=== PATIENT | female | born 1955 | race Caucasian/White ===

== ENCOUNTER 2021-07-25 09:45 | Emergency (ER) | payer MEDICARE, OTHER ==
[~2021-07-25] VITALS: Ht 172.7 cm; Wt 81.7 kg
[2021-07-25 10:39] LABS: BASOPHILS ABSOLUTE AUTO 0.04 K/mm3 (0.00-0.23); BASOPHILS PERCENT AUTO 1 % (0-2); EOSINOPHILS ABSOLUTE AUTO 0.06 K/mm3 (0.00-0.68); EOSINOPHILS PERCENT AUTO 1 % (0-6); IMMATURE GRAN PERCENT AUTO 0 % (0-1); LYMPHOCYTES ABSOLUTE AUTO 1.61 K/mm3 (0.84-5.20); LYMPHOCYTES PERCENT AUTO 29 % (21-46); MONOCYTES PERCENT AUTO 11 % (4-13); Mean Corpuscular HGB 30.9 pg (26.0-34.0); Mean Corpuscular HGB Conc 34.9 g/dL (31.5-36.5); Mean Corpuscular Volume 89 fL (80-100); Mean Platelet Volume 9.4 fL (9.1-12.4); NEUTROPHILS ABSOLUTE AUTO 3.22 K/mm3 (1.96-9.15); NEUTROPHILS PERCENT AUTO 58 % (41-73); Platelet Count 296 K/mm3 (150-400); RDW Coefficient Variation 12.2 % (11.7-14.2); RDW Standard Deviation 39.7 fL (35.1-46.3); Red Blood Cell Count 4.86 M/mm3 (3.80-5.20); White Blood Cell Count 5.53 K/mm3 (4.00-11.30)
[2021-07-25 11:02] LABS: Alanine Aminotransfer (ALT/SGP 46 U/L (12-78); Albumin, Blood 3.4 g/dL (3.4-5.0); Alk Phos 120 U/L (50-136); Anion Gap 7 mmol/L (6-16); Aspartate Aminotrans (AST/SGOT 28 U/L (12-37); Bilirubin, Total 0.4 mg/dL (0.1-1.0); Blood Urea Nitrogen 23 mg/dL (8-24); Bun/Creatinine Ratio 37.5 (12.0-20.0); CO2, Blood 28 mmol/L (21-32); Calcium, Blood 9.5 mg/dL (8.5-10.1); Chloride, Blood 105 mmol/L (98-108); Creatinine, Blood 0.61 mg/dL (0.40-1.00); Globulin, Blood 3.4 g/dL (2.2-4.0); Glomerular Filtration Rate >60 (60-); Glucose, Blood 86 mg/dL (70-99); Potassium, Blood 4.2 mmol/L (3.5-5.5); Sodium, Blood 140 mmol/L (136-145); Total Protein, Blood 6.8 g/dL (6.4-8.2)
[2021-07-25 13:01] LABS: Source, Urine Catheter
[2021-07-25 13:07] LABS: Appearance, Urine Clear (Clear); Bilirubin, Urine Neg (Neg); Blood, Urine Neg (Neg); Color, Urine Yellow (P-Yellow); Glucose Qualitative, Urine Neg (Neg); Ketones, Urine Neg (Neg); Leukocyte Esterase, Urine Neg (Neg); Nitrite, Urine Neg (Neg); Protein, Urine Neg (Neg); Urobilinogen, Urine NORM (Normal)
== END 2021-07-25 13:30 | disposition home or self-care (01) ==
LOC: ER 09:45
PROVIDERS: Physician Assistant
DX: R25.1 Tremor, unspecified (principal)
CPT/HCPCS: 36415; 80053; 81003; 85025; 93005; 93010; 99285-25

== ENCOUNTER → 2021-10-29 | Outpatient (CLI) | payer MEDICARE, OTHER ==
[~2021-10-29] MED LIST: AMLODIPINE BESYL5 MG PO; BACLOFEN10 M4 PO; CELEXA10 MG PO; CEPHALEXIN125 MG/5 M PO; FUROSEMIDE20 MG PO; HYDROCODONE-AC1 EA18 PO; LOVASTATIN40 MG PO; Lisinopril2.5 MG PO; NAPROXEN500 MG PO; OMEP20ER PO; Oxybutynin Chlor5 M1 PO
[2021-10-29 16:55] LABS: Source, Urine Voided
[2021-10-29 17:56] LABS: Appearance, Urine Hazy (Clear); Bilirubin, Urine Neg (Neg); Blood, Urine 2+ (Neg); Color, Urine Yellow (P-Yellow); Glucose Qualitative, Urine Neg (Neg); Ketones, Urine Neg (Neg); Leukocyte Esterase, Urine 1+ (Neg); Nitrite, Urine Neg (Neg); Protein, Urine Neg (Neg); Specific Gravity, Urine 1.015 (1.003-1.022); Urobilinogen, Urine NORM (Normal)
[2021-10-29 18:11] LABS: Bacteria Many /hpf; Squamous Epithelial Cells Mod /hpf (Few)
== END ==
LOC: LAB SHORT 16:52 → LAB 16:52
PROVIDERS: Internal Medicine
DX: N39.0 Urinary tract infection, site not specified (principal)
CPT/HCPCS: 81001; 87086

== ENCOUNTER 2022-02-03 08:17 | Emergency (ER) | payer MEDICARE, OTHER ==
[~2022-02-03] VITALS: Ht 177.8 cm; Wt 81.7 kg
[2022-02-03] MEDS ORDERED: AMLODIPINE BESYL5 MG PO (08:38)
[2022-02-03] MEDS ORDERED: Oxybutynin Chlor5 M1 PO (08:38)
[2022-02-03] MEDS ORDERED: CELEXA10 MG PO (08:38)
[2022-02-03] MEDS ORDERED: OMEP20ER PO (08:39)
[2022-02-03] MEDS ORDERED: BACLOFEN10 M4 PO (08:39)
[2022-02-03] MEDS ORDERED: FUROSEMIDE20 MG PO (08:39)
[2022-02-03] MEDS ORDERED: HYDROCODONE-AC1 EA18 PO (08:39)
[2022-02-03] MEDS ORDERED: NAPROXEN500 MG PO (08:39)
[2022-02-03] MEDS ORDERED: LOVASTATIN40 MG PO (08:39)
[2022-02-03] MEDS ORDERED: CEPHALEXIN125 MG/5 M PO (08:40)
[2022-02-03] MEDS ORDERED: Lisinopril2.5 MG PO (08:40)
[2022-02-03 08:43] LABS: BASOPHILS ABSOLUTE AUTO 0.04 K/mm3 (0.00-0.23); BASOPHILS PERCENT AUTO 1 % (0-2); EOSINOPHILS ABSOLUTE AUTO 0.16 K/mm3 (0.00-0.68); EOSINOPHILS PERCENT AUTO 3 % (0-6); Hematocrit 38.8 % (33.0-51.0); Hemoglobin 13.3 g/dL (11.5-16.0); IMMATURE GRAN ABSOLUTE AUTO 0.02 K/mm3 (0.00-0.10); IMMATURE GRAN PERCENT AUTO 0 % (0-1); LYMPHOCYTES ABSOLUTE AUTO 2.08 K/mm3 (0.84-5.20); LYMPHOCYTES PERCENT AUTO 35 % (21-46); MONOCYTES PERCENT AUTO 14 % (4-13); Mean Corpuscular HGB 29.8 pg (26.0-34.0); Mean Corpuscular HGB Conc 34.3 g/dL (31.5-36.5); Mean Corpuscular Volume 87 fL (80-100); Mean Platelet Volume 9.4 fL (9.1-12.4); NEUTROPHILS PERCENT AUTO 47 % (41-73); Platelet Count 273 K/mm3 (150-400); RDW Coefficient Variation 12.5 % (11.7-14.2); RDW Standard Deviation 39.4 fL (35.1-46.3); Red Blood Cell Count 4.47 M/mm3 (3.80-5.20)
[2022-02-03 09:03] LABS: Albumin, Blood 3.5 g/dL (3.4-5.0); Bilirubin, Total 0.4 mg/dL (0.1-1.0); Bun/Creatinine Ratio 30.1 (12.0-20.0); Calcium, Blood 9.3 mg/dL (8.5-10.1); Creatinine, Blood 0.63 mg/dL (0.40-1.00); Globulin, Blood 3.4 g/dL (2.2-4.0); Potassium, Blood 4.1 mmol/L (3.5-5.5); Total Protein, Blood 6.9 g/dL (6.4-8.2)
== END 2022-02-03 10:39 | disposition home or self-care (01) ==
LOC: ER 08:17
PROVIDERS: Physician Assistant
DX: R20.2 Paresthesia of skin (principal); Z79.899 Other long term (current) drug therapy
CPT/HCPCS: 36415; 80053; 85025; 99284

== ENCOUNTER 2022-09-01 11:25 | Emergency (ER) | payer MEDICARE, OTHER ==
[~2022-09-01] VITALS: Ht 175.3 cm; Wt 83.9 kg
[2022-09-01 12:59] LABS: BASOPHILS ABSOLUTE AUTO 0.05 K/mm3 (0.00-0.23); BASOPHILS PERCENT AUTO 1 % (0-2); EOSINOPHILS ABSOLUTE AUTO 0.24 K/mm3 (0.00-0.68); EOSINOPHILS PERCENT AUTO 4 % (0-6); Hematocrit 44.1 % (33.0-51.0); Hemoglobin 15.4 g/dL (11.5-16.0); IMMATURE GRAN ABSOLUTE AUTO 0.01 K/mm3 (0.00-0.10); IMMATURE GRAN PERCENT AUTO 0 % (0-1); LYMPHOCYTES ABSOLUTE AUTO 2.34 K/mm3 (0.84-5.20); LYMPHOCYTES PERCENT AUTO 36 % (21-46); MONOCYTES ABSOLUTE AUTO 0.74 K/mm3 (0.16-1.47); MONOCYTES PERCENT AUTO 12 % (4-13); Mean Corpuscular HGB 30.2 pg (26.0-34.0); Mean Corpuscular HGB Conc 34.9 g/dL (31.5-36.5); Mean Corpuscular Volume 87 fL (80-100); Mean Platelet Volume 9.4 fL (9.1-12.4); NEUTROPHILS ABSOLUTE AUTO 3.04 K/mm3 (1.96-9.15); NEUTROPHILS PERCENT AUTO 47 % (41-73); Platelet Count 262 K/mm3 (150-400); RDW Coefficient Variation 12.3 % (11.7-14.2); White Blood Cell Count 6.42 K/mm3 (4.00-11.30)
[2022-09-01 13:09] LABS: Albumin, Blood 3.5 g/dL (3.4-5.0); Albumin/Globulin Ratio 0.8 (0.8-1.8); Bilirubin, Total 0.5 mg/dL (0.1-1.0); Calcium, Blood 8.9 mg/dL (8.5-10.1); Creatinine, Blood 0.68 mg/dL (0.40-1.00); Globulin, Blood 4.2 g/dL (2.2-4.0); Total Protein, Blood 7.7 g/dL (6.4-8.2)
[2022-09-01 13:27] LABS: Influenza A, PCR NEGATIVE (NEGATIVE); Influenza B, PCR NEGATIVE (NEGATIVE); Resp Syncytial Virus, PCR NEGATIVE (NEGATIVE); SARS-Cov-2 (COVID-19) PCR, MMC NEGATIVE (NEGATIVE)
== END 2022-09-01 20:50 | disposition home or self-care (01) ==
LOC: ER 11:25
PROVIDERS: Student in an Organized Health Care Education/Training Program
DX: R05.9 Cough, unspecified (principal); R07.89 Other chest pain; Z20.822 Contact with and (suspected) exposure to COVID-19; Z79.899 Other long term (current) drug therapy
CPT/HCPCS: 0241U; 71046; 71260; 80053; 83880; 84484; 85025; 85379; 93005; 93010; 94640; 94664; 99285-25; Q9967

== ENCOUNTER → 2022-10-26 | Outpatient (CLI) | payer MEDICARE, OTHER ==
[2022-10-26 15:31] LABS: Appearance, Urine Clear (Clear); Bilirubin, Urine Neg (Neg); Blood, Urine Neg (Neg); Glucose Qualitative, Urine Neg (Neg); Ketones, Urine Neg (Neg); Leukocyte Esterase, Urine Neg (Neg); Nitrite, Urine Neg (Neg); Protein, Urine Neg (Neg); Specific Gravity, Urine 1.015 (1.003-1.022); Urobilinogen, Urine NORM (Normal)
[2022-10-26 16:08] LABS: Color, Urine Pale Yellow (P-Yellow)
== END | disposition home or self-care (01) ==
LOC: LAB SHORT 07:45 → LAB 07:45
PROVIDERS: Internal Medicine
DX: N39.0 Urinary tract infection, site not specified (principal)
CPT/HCPCS: 81003; 87086

== ENCOUNTER 2022-11-02 09:29 | Day surgery (SDC) | payer MEDICARE, OTHER ==
[~2022-11-02] VITALS: Ht 177.8 cm; Wt 81.6 kg
[2022-11-02] MEDS ORDERED: BACL10 (10:34)
[2022-11-02 12:21] VITALS: BP 146/97
--- NOTE | 2022-11-02 12:34 | NUR ---
11/02/22 1234 PRADIP PAULINO PT CLOTHING IS SOILED WITH URINE. WILL CLEAN HER WITH READY BATH FRESH AND PUT A NEW DEPENDS ON HER WELL DISPOSABLE PANTS FOR HER RIDE HOME.
== END 2022-11-02 13:10 | disposition home or self-care (01) ==
LOC: ORSCSDS 09:29
PROVIDERS: Orthopaedic Surgery
PROC: 01N54ZZ Release Median Nerve, Percutaneous Endoscopic Approach (ICD-10-PCS; principal; 2022-11-02 11:30)
DX: G56.03 Carpal tunnel syndrome, bilateral upper limbs (principal); Z79.899 Other long term (current) drug therapy
CPT/HCPCS: J2250; J7120

== ENCOUNTER → 2022-11-18 | Outpatient (CLI) | payer MEDICARE, OTHER ==
[~2022-11-18] MED LIST changes: +BACL10
[2022-11-18 16:36] LABS: Appearance, Urine Clear (Clear); Bilirubin, Urine Neg (Neg); Blood, Urine Neg (Neg); Color, Urine Yellow (P-Yellow); Glucose Qualitative, Urine Neg (Neg); Ketones, Urine Neg (Neg); Leukocyte Esterase, Urine Neg (Neg); Nitrite, Urine Neg (Neg); Protein, Urine Neg (Neg); Urobilinogen, Urine NORM (Normal)
== END ==
LOC: LAB SHORT 16:16
PROVIDERS: Internal Medicine
DX: N39.0 Urinary tract infection, site not specified (principal)
CPT/HCPCS: 81003

== ENCOUNTER → 2023-02-15 | Outpatient (CLI) | payer MEDICARE, OTHER ==
[2023-02-16 01:17] LABS: Adenovirus F 40/41 Not Detected (NOT DETECT); Astrovirus Not Detected (NOT DETECT); Campylobacter Sp Not Detected (NOT DETECT); Cryptosporidium Not Detected (NOT DETECT); Cyclospora Cayetanensis Not Detected (NOT DETECT); E. Coli O157 Not Detected (NOT DETECT); Entamoeba Histolytica Not Detected (NOT DETECT); Enteroaggregative E. coli-EAEC Not Detected (NOT DETECT); Enteropathogenic E. coli-EPEC Not Detected (NOT DETECT); Enterotoxigenic E. coli-ETEC Not Detected (NOT DETECT); Giardia Lamblia Detected (NOT DETECT); Norovirus GI/GII Not Detected (NOT DETECT); Plesiomonas Shigelloides Not Detected (NOT DETECT); Rotavirus A Not Detected (NOT DETECT); Salmonella Sp Not Detected (NOT DETECT); Sapovirus Not Detected (NOT DETECT); Shiga Toxin-prod E. coli-STEC Not Detected (NOT DETECT); Shigella/Enteroin E. coli-EIEC Not Detected (NOT DETECT); Vibrio Cholerae Not Detected (NOT DETECT); Vibrio Sp Not Detected (NOT DETECT); Yersinia Enterocolitica Not Detected (NOT DETECT)
== END ==
LOC: LAB 18:15 → LAB SHORT 18:15
PROVIDERS: Internal Medicine
DX: A06.1 Chronic intestinal amebiasis (principal)
CPT/HCPCS: 87507

== ENCOUNTER 2023-03-28 22:26 | Emergency (ER) | payer MEDICARE, OTHER ==
[~2023-03-28] VITALS: Ht 177.8 cm; Wt 127.0 kg
[2023-03-28 22:53] VITALS: BP 152/96
[2023-03-28 23:03] LABS: BASOPHILS ABSOLUTE AUTO 0.07 K/mm3 (0.00-0.23); BASOPHILS PERCENT AUTO 1 % (0-2); EOSINOPHILS ABSOLUTE AUTO 0.15 K/mm3 (0.00-0.68); EOSINOPHILS PERCENT AUTO 2 % (0-6); Hematocrit 41.6 % (33.0-51.0); Hemoglobin 14.4 g/dL (11.5-16.0); IMMATURE GRAN ABSOLUTE AUTO 0.02 K/mm3 (0.00-0.10); IMMATURE GRAN PERCENT AUTO 0 % (0-1); LYMPHOCYTES ABSOLUTE AUTO 2.91 K/mm3 (0.84-5.20); LYMPHOCYTES PERCENT AUTO 44 % (21-46); MONOCYTES ABSOLUTE AUTO 0.96 K/mm3 (0.16-1.47); MONOCYTES PERCENT AUTO 14 % (4-13); Mean Corpuscular HGB 30.6 pg (26.0-34.0); Mean Corpuscular HGB Conc 34.6 g/dL (31.5-36.5); Mean Corpuscular Volume 88 fL (80-100); Mean Platelet Volume 9.4 fL (9.1-12.4); NEUTROPHILS ABSOLUTE AUTO 2.56 K/mm3 (1.96-9.15); NEUTROPHILS PERCENT AUTO 39 % (41-73); Platelet Count 240 K/mm3 (150-400); RDW Coefficient Variation 12.6 % (11.7-14.2); RDW Standard Deviation 41.1 fL (35.1-46.3); Red Blood Cell Count 4.71 M/mm3 (3.80-5.20); White Blood Cell Count 6.67 K/mm3 (4.00-11.30)
[2023-03-28 23:21] LABS: Albumin, Blood 3.6 g/dL (3.4-5.0); Albumin/Globulin Ratio 1.1 (0.8-1.8); Bilirubin, Total 0.2 mg/dL (0.1-1.0); Bun/Creatinine Ratio 30.2 (12.0-20.0); Calcium, Blood 8.9 mg/dL (8.5-10.1); Creatinine, Blood 0.8 mg/dL (0.40-1.00); Globulin, Blood 3.3 g/dL (2.2-4.0); Potassium, Blood 4.1 mmol/L (3.5-5.5); Total Protein, Blood 6.9 g/dL (6.4-8.2)
== END 2023-03-29 00:21 | disposition home or self-care (01) ==
LOC: ER 22:26
PROVIDERS: Student in an Organized Health Care Education/Training Program
DX: R55 Syncope and collapse (principal); Z79.899 Other long term (current) drug therapy; Z79.891 Long term (current) use of opiate analgesic
CPT/HCPCS: 80053; 85025; 93005; 93010; 99284-25

== ENCOUNTER 2023-05-19 10:30 | Emergency (ER) | payer MEDICARE, OTHER ==
[~2023-05-19] VITALS: Ht 175.3 cm; Wt 90.7 kg
[2023-05-19 11:02] LABS: BASOPHILS ABSOLUTE AUTO 0.05 K/mm3 (0.00-0.23); BASOPHILS PERCENT AUTO 1 % (0-2); EOSINOPHILS ABSOLUTE AUTO 0.14 K/mm3 (0.00-0.68); EOSINOPHILS PERCENT AUTO 2 % (0-6); Hematocrit 41.2 % (33.0-51.0); Hemoglobin 13.8 g/dL (11.5-16.0); IMMATURE GRAN ABSOLUTE AUTO 0.01 K/mm3 (0.00-0.10); IMMATURE GRAN PERCENT AUTO 0 % (0-1); LYMPHOCYTES ABSOLUTE AUTO 2.14 K/mm3 (0.84-5.20); LYMPHOCYTES PERCENT AUTO 34 % (21-46); MONOCYTES ABSOLUTE AUTO 0.52 K/mm3 (0.16-1.47); MONOCYTES PERCENT AUTO 8 % (4-13); Mean Corpuscular HGB 30.4 pg (26.0-34.0); Mean Corpuscular HGB Conc 33.5 g/dL (31.5-36.5); Mean Corpuscular Volume 91 fL (80-100); Mean Platelet Volume 9.4 fL (9.1-12.4); NEUTROPHILS ABSOLUTE AUTO 3.49 K/mm3 (1.96-9.15); NEUTROPHILS PERCENT AUTO 55 % (41-73); Platelet Count 246 K/mm3 (150-400); RDW Coefficient Variation 12.6 % (11.7-14.2); Red Blood Cell Count 4.54 M/mm3 (3.80-5.20); White Blood Cell Count 6.35 K/mm3 (4.00-11.30)
[2023-05-19 11:17] LABS: Albumin, Blood 3.4 g/dL (3.4-5.0); Bilirubin, Total 0.4 mg/dL (0.1-1.0); Bun/Creatinine Ratio 27.3 (12.0-20.0); Calcium, Blood 8.6 mg/dL (8.5-10.1); Creatinine, Blood 0.84 mg/dL (0.40-1.00); Globulin, Blood 3.4 g/dL (2.2-4.0); Total Protein, Blood 6.8 g/dL (6.4-8.2)
[2023-05-19 13:30] VITALS: BP 153/102
== END 2023-05-19 14:36 | disposition home or self-care (01) ==
LOC: ER 10:30
PROVIDERS: Student in an Organized Health Care Education/Training Program
DX: R55 Syncope and collapse (principal); R42 Dizziness and giddiness
CPT/HCPCS: 80053; 83735; 83880; 84484; 85025; 93005; 93010; 99284-25

== ENCOUNTER 2023-07-06 20:45 | Emergency (ER) | payer MEDICARE, OTHER ==
[~2023-07-06] VITALS: Ht 172.7 cm; Wt 90.7 kg
[2023-07-06 21:00] LABS: BASOPHILS ABSOLUTE AUTO 0.05 K/mm3 (0.00-0.23); BASOPHILS PERCENT AUTO 1 % (0-2); EOSINOPHILS ABSOLUTE AUTO 0.17 K/mm3 (0.00-0.68); EOSINOPHILS PERCENT AUTO 3 % (0-6); Hemoglobin 15.3 g/dL (11.5-16.0); IMMATURE GRAN ABSOLUTE AUTO 0.01 K/mm3 (0.00-0.10); IMMATURE GRAN PERCENT AUTO 0 % (0-1); LYMPHOCYTES ABSOLUTE AUTO 2.71 K/mm3 (0.84-5.20); LYMPHOCYTES PERCENT AUTO 44 % (21-46); MONOCYTES ABSOLUTE AUTO 0.74 K/mm3 (0.16-1.47); MONOCYTES PERCENT AUTO 12 % (4-13); Mean Corpuscular HGB 31.3 pg (26.0-34.0); Mean Corpuscular HGB Conc 34.8 g/dL (31.5-36.5); Mean Corpuscular Volume 90 fL (80-100); Mean Platelet Volume 9.3 fL (9.1-12.4); NEUTROPHILS ABSOLUTE AUTO 2.51 K/mm3 (1.96-9.15); NEUTROPHILS PERCENT AUTO 41 % (41-73); Platelet Count 250 K/mm3 (150-400); RDW Coefficient Variation 12.5 % (11.7-14.2); RDW Standard Deviation 40.8 fL (35.1-46.3); Red Blood Cell Count 4.89 M/mm3 (3.80-5.20); White Blood Cell Count 6.19 K/mm3 (4.00-11.30)
[2023-07-06 21:15] LABS: Albumin, Blood 3.7 g/dL (3.4-5.0); Bilirubin, Total 0.2 mg/dL (0.1-1.0); Bun/Creatinine Ratio 36.2 (12.0-20.0); Calcium, Blood 8.7 mg/dL (8.5-10.1); Creatinine, Blood 0.75 mg/dL (0.40-1.00); Globulin, Blood 3.8 g/dL (2.2-4.0); Potassium, Blood 4.5 mmol/L (3.5-5.5); Total Protein, Blood 7.5 g/dL (6.4-8.2)
[2023-07-06 23:29] LABS: Source, Urine Clean Catch
[2023-07-06 23:48] LABS: Bilirubin, Urine Neg (Neg); Blood, Urine Neg (Neg); Glucose Qualitative, Urine Neg (Neg); Ketones, Urine Neg (Neg); Leukocyte Esterase, Urine 1+ (Neg); Nitrite, Urine Pos (Neg); Protein, Urine 1+ (Neg); Urobilinogen, Urine 2+ (Normal)
[2023-07-06 23:53] LABS: Appearance, Urine Hazy (Clear); Color, Urine Yellow (P-Yellow)
[2023-07-06 23:54] LABS: Bacteria Many /hpf; Red Blood Cells, Urine 0-2 /hpf (0-2); Squamous Epithelial Cells Few /hpf (Few); White Blood Cells, Urine 0-2 /hpf (0-5)
[2023-07-07] MEDS ORDERED: CEPH500 PO (02:29)
[2023-07-07 03:00] VITALS: BP 136/92
== END 2023-07-07 03:27 | disposition home or self-care (01) ==
LOC: ER 20:45
PROVIDERS: Emergency Medicine; Student in an Organized Health Care Education/Training Program
DX: N39.0 Urinary tract infection, site not specified (principal); Z79.899 Other long term (current) drug therapy
CPT/HCPCS: 71046; 74177; 80053; 81001; 84484; 85025; 87077; 87086; 87186; 93005; 93010; 94644; 94664; 99285-25; A9270; Q9967

== ENCOUNTER 2023-08-03 04:55 | Inpatient (IN) | payer MEDICARE, OTHER ==
[~2023-08-03] VITALS: Ht 170.2 cm; Wt 105.4 kg
[~2023-08-03 04:55] MED LIST changes: -BACL10; +BACL10 PO; +CEPH500 PO; -HYDROCODONE-AC1 EA18 PO; +Norco 5-325 Ta1 EACH PO
[2023-08-03 05:17] LABS: Base Excess Venous 3.7 mmol/L; Bicarbonate Venous 26.4 mmol/L (24.0-30.0); PCO2 Venous 49.2 mmHg (38-42); pH Blood Venous 7.38 (7.34-7.37)
[2023-08-03 05:26] LABS: BASOPHILS ABSOLUTE AUTO 0.04 K/mm3 (0.00-0.23); BASOPHILS PERCENT AUTO 1 % (0-2); EOSINOPHILS ABSOLUTE AUTO 0.06 K/mm3 (0.00-0.68); EOSINOPHILS PERCENT AUTO 1 % (0-6); Hematocrit 43.1 % (33.0-51.0); IMMATURE GRAN PERCENT AUTO 0 % (0-1); LYMPHOCYTES PERCENT AUTO 33 % (21-46); MONOCYTES ABSOLUTE AUTO 0.98 K/mm3 (0.16-1.47); MONOCYTES PERCENT AUTO 20 % (4-13); Mean Corpuscular HGB 30.7 pg (26.0-34.0); Mean Corpuscular HGB Conc 34.8 g/dL (31.5-36.5); Mean Corpuscular Volume 88 fL (80-100); NEUTROPHILS ABSOLUTE AUTO 2.19 K/mm3 (1.96-9.15); NEUTROPHILS PERCENT AUTO 45 % (41-73); Platelet Count 190 K/mm3 (150-400); RDW Coefficient Variation 12.7 % (11.7-14.2); Red Blood Cell Count 4.89 M/mm3 (3.80-5.20); White Blood Cell Count 4.87 K/mm3 (4.00-11.30)
[2023-08-03 05:41] LABS: Albumin, Blood 3.6 g/dL (3.4-5.0); Albumin/Globulin Ratio 0.9 (0.8-1.8); Bilirubin, Total 0.4 mg/dL (0.1-1.0); Bun/Creatinine Ratio 38.9 (12.0-20.0); Calcium, Blood 8.9 mg/dL (8.5-10.1); Creatinine, Blood 0.51 mg/dL (0.40-1.00); Potassium, Blood 3.7 mmol/L (3.5-5.5); Total Protein, Blood 7.6 g/dL (6.4-8.2)
[2023-08-03 06:15] LABS: Influenza A, PCR NEGATIVE (NEGATIVE); Influenza B, PCR NEGATIVE (NEGATIVE); SARS-Cov-2 (COVID-19) PCR, MMC NEGATIVE (NEGATIVE)
[2023-08-03 06:21] LABS: Resp Syncytial Virus, PCR POSITIVE (NEGATIVE)
[2023-08-03] MEDS ORDERED: AMLO10 PO (10:24)
[2023-08-03] MEDS ORDERED: CITALOPRAM HBR10 MG PO (10:25)
[2023-08-03] MEDS ORDERED: FURO20 PO (10:26)
[2023-08-03] MEDS ORDERED: LISI5 PO (10:27)
[2023-08-03] MEDS ORDERED: LOVASTATIN40 MG PO (10:28)
[2023-08-03] MEDS ORDERED: OMEP20ER PO (10:29)
[2023-08-03] MEDS ORDERED: Oxybutynin Chlor5 M1 PO (10:30)
--- NOTE | 2023-08-03 11:25 | NUR ---
Pt arrived to [facility] via gurney from ER, was slid over to bed, a/ox3, profoundly [place], even with hearing aids in place, lungs have exp wheezing t/o, air movement is dim, currently on 5 liters 02 via n/c, resp even and unlabored, no cough noted at this time, hrr, looks to have some edema to her thighs, but could be body habitus, piv to lac, site is clear and patent, btx4, abd flat soft nontender, incont of bowel/bladder at this time, had stool present, this was cleaned and changed, has a small open wound deep in buttocks crack, pictures were taken and dressings applied after cleansing, moves upper ext ok, but is stiff, hips seems to be fixed, and legs contracted, aquilino, oriented to room layout and call light in reach.
[2023-08-03 11:30] VITALS: BP 143/84
[2023-08-03 17:27] VITALS: BP 150/83
[2023-08-03] MEDS ORDERED: DOCU100 PO (17:34)
[2023-08-03] MEDS ORDERED: Milk of Magnesia PO (17:36)
[2023-08-03] MEDS ORDERED: BISA10S PR (17:37)
[2023-08-03] MEDS ORDERED: CLOBETASOL EMOL15 G1 TOP (17:38)
[2023-08-03] MEDS ORDERED: MIRALAX17 GM PO (17:39)
[2023-08-03] MEDS ORDERED: ACET500 PO (17:42)
--- NOTE | 2023-08-03 18:36 | NUR ---
pt has had four bm since admission, her legs want to clamp shut and is very difficult to clean, ointment being placed on her sores on her buttocks as is not practical to have dressings. no further changes this shift. call light in reach.
[2023-08-03 19:39] VITALS: BP 149/88
[2023-08-04 05:19] VITALS: BP 171/103
[2023-08-04 05:19] LABS: BASOPHILS ABSOLUTE AUTO 0.02 K/mm3 (0.00-0.23); BASOPHILS PERCENT AUTO 0 % (0-2); EOSINOPHILS ABSOLUTE AUTO 0.03 K/mm3 (0.00-0.68); EOSINOPHILS PERCENT AUTO 0 % (0-6); Hematocrit 42.1 % (33.0-51.0); Hemoglobin 14.1 g/dL (11.5-16.0); IMMATURE GRAN ABSOLUTE AUTO 0.02 K/mm3 (0.00-0.10); IMMATURE GRAN PERCENT AUTO 0 % (0-1); LYMPHOCYTES ABSOLUTE AUTO 2.67 K/mm3 (0.84-5.20); LYMPHOCYTES PERCENT AUTO 29 % (21-46); MONOCYTES ABSOLUTE AUTO 1.49 K/mm3 (0.16-1.47); MONOCYTES PERCENT AUTO 16 % (4-13); Mean Corpuscular HGB 30.1 pg (26.0-34.0); Mean Corpuscular HGB Conc 33.5 g/dL (31.5-36.5); Mean Corpuscular Volume 90 fL (80-100); Mean Platelet Volume 9.5 fL (9.1-12.4); NEUTROPHILS ABSOLUTE AUTO 4.94 K/mm3 (1.96-9.15); NEUTROPHILS PERCENT AUTO 54 % (41-73); Platelet Count 206 K/mm3 (150-400); RDW Coefficient Variation 12.8 % (11.7-14.2); RDW Standard Deviation 42.3 fL (35.1-46.3); Red Blood Cell Count 4.68 M/mm3 (3.80-5.20); White Blood Cell Count 9.17 K/mm3 (4.00-11.30)
[2023-08-04 05:36] LABS: Albumin, Blood 3.2 g/dL (3.4-5.0); Albumin/Globulin Ratio 0.8 (0.8-1.8); Bilirubin, Total 0.3 mg/dL (0.1-1.0); Bun/Creatinine Ratio 31.2 (12.0-20.0); Calcium, Blood 8.7 mg/dL (8.5-10.1); Creatinine, Blood 0.51 mg/dL (0.40-1.00); Potassium, Blood 4.1 mmol/L (3.5-5.5); Total Protein, Blood 7.2 g/dL (6.4-8.2)
--- NOTE | 2023-08-04 05:46 | NUR ---
SHIFT SUMMERY, PT SEEMING VERY ANXIOUS AT TIMES. PT C/O SALCEDO LAST NOC AND WAS MEDICATED WITH TYLENOL. THIS AM PT HAVING PANIC ATTACK STATED SHE COULS NOT BREATH BUT WAS YELLING. TURNED UP O2 AND PLCED NC TO MOUTH PT NOT BREATHING THROUGH HER NOSE. PULLED PT UP IN BED, HOB UP CALLED RT FOR TX. PT NOW BACK TO SLEEP IN BED. CALL LIGHT IN REACH.
[2023-08-04 07:47] VITALS: BP 149/103
--- NOTE | 2023-08-04 16:02 | NUR ---
PT AOX3 WITH SOME CONFUSION. PT HAS BEEN IN BED AND NEEDS REPOSTIONED HER HIPS ARE STIFF AND SHE CAN'T ROLL WELL ON HER OWN. PT IS INCONTENT OF BOWEL AND BLADDER WITH PERWICK IN PLACE. PT WILL CALL AND MAKE NEEDS KNOWN. PT REPORTED WHILE EATING LUNCH THAT SHE FEELS LIKE FOOD IS GETTING STUCK IN HER THROAT DOWN LOW. THIS CYBER CRIME INVESTIGATOR CHECKED PT'S THROAT AND DID NOT SEE ANY IRRITATION AT BACK OF THROAT. DR CHAN WAS NOTIFIED AND HE ORDERED PT TO BE NPO UNTIL ST CAN EVALUATE. PT CONTINUES TO HAVE 3 L GOING AND IS SATING LOW 90s. CALL LIGHT IS WITHIN REACH AND BEDALARM IN PLACE.
[2023-08-04 16:30] VITALS: BP 158/105
[2023-08-04 19:55] VITALS: BP 155/117
[2023-08-05 01:26] VITALS: BP 176/92
--- NOTE | 2023-08-05 01:32 | NUR ---
IRVIN STAUFFER, PT AT START OF SHIFT WAS VERY ANXIOUS, YELLING OUT. PT SAYING SHE COULD NOT BREATH. TALKED TO PT ABOUT BREATHING THROUGH NOSE AND OUT OF MOUTH. PT ALSO UPSET ABOUT BEING NPO. PT THINKING IT WAS A PUNISHMENT FOR COMPLANING. TRYED TO EXSPLANE TO PT THERE WAS SOME CONCERN ABOUT HER SWALLOWING AND SHE WOULD BE TESTED BY STEPHANIE TO MAKE SURE SHE WAS SAFELY ABLE TO SWALLOW FOOD DRINKS AND MEDS. PT VU, BUT THEN AGAIN WAS SAYING SHE WAS THINKING SHE WAS BEING PUNISHED FOR C/O. PT GIVEN RT TX AND HER HS MEDS . PT CALMING DOWN. PT SLEPT FO A WHILE VITALS RETAKEN LATER . BP WAS UP AT BEGINING OF SHIFT DOWN MORE AT THIS TIME. PT SEEMS TO BE RESTING WELL CALL LIGHT IN REACH.
[2023-08-05 05:12] VITALS: BP 178/99
[2023-08-05 05:43] LABS: BASOPHILS ABSOLUTE AUTO 0.01 K/mm3 (0.00-0.23); BASOPHILS PERCENT AUTO 0 % (0-2); EOSINOPHILS PERCENT AUTO 0 % (0-6); Hematocrit 43.4 % (33.0-51.0); Hemoglobin 15.1 g/dL (11.5-16.0); IMMATURE GRAN ABSOLUTE AUTO 0.02 K/mm3 (0.00-0.10); IMMATURE GRAN PERCENT AUTO 0 % (0-1); LYMPHOCYTES PERCENT AUTO 16 % (21-46); MONOCYTES ABSOLUTE AUTO 1.05 K/mm3 (0.16-1.47); MONOCYTES PERCENT AUTO 10 % (4-13); Mean Corpuscular HGB 30.8 pg (26.0-34.0); Mean Corpuscular HGB Conc 34.8 g/dL (31.5-36.5); Mean Corpuscular Volume 89 fL (80-100); Mean Platelet Volume 9.2 fL (9.1-12.4); NEUTROPHILS ABSOLUTE AUTO 8.09 K/mm3 (1.96-9.15); NEUTROPHILS PERCENT AUTO 74 % (41-73); Platelet Count 221 K/mm3 (150-400); RDW Coefficient Variation 12.6 % (11.7-14.2); RDW Standard Deviation 40.9 fL (35.1-46.3); White Blood Cell Count 10.87 K/mm3 (4.00-11.30)
[2023-08-05 06:31] LABS: Albumin, Blood 3.2 g/dL (3.4-5.0); Albumin/Globulin Ratio 0.8 (0.8-1.8); Bilirubin, Total 0.5 mg/dL (0.1-1.0); Bun/Creatinine Ratio 29.6 (12.0-20.0); Calcium, Blood 9.1 mg/dL (8.5-10.1); Creatinine, Blood 0.58 mg/dL (0.40-1.00); Globulin, Blood 4.2 g/dL (2.2-4.0); Magnesium, Blood 2.3 mg/dL (1.6-2.4); Phosphorus, Blood 3.4 mg/dL (2.5-4.9); Potassium, Blood 4.1 mmol/L (3.5-5.5); Total Protein, Blood 7.4 g/dL (6.4-8.2)
[2023-08-05 07:34] VITALS: BP 154/108
[2023-08-05 16:02] VITALS: BP 134/123
--- NOTE | 2023-08-05 18:45 | NUR ---
SHIFT SUMMARY: PATIENT HAD SUDDEN EPISODE OF EMESIS DURING DINNER THIS EVENING. SLIGHT POSSIBILITY OF ASPIRATION BUT NO CHANGE IN RR, RESP EFFORT, OR OXYGEN NEEDS. ANOTHER RN RECEIVED ORDER FOR AND ADMINISTERED ZOFRAN WHILE COMPLETE BATH AND BED CHANGE WAS COMPLETED. ON O2 @ 2 L/MIN NC, CONT OXIMETRY SHOWS > 92%. DENIED PAIN. PUREWICK DRAINING YELLOW URINE. GRAVEL ROOFER SAW PT THIS MORNING, ADVANCED DIET TO MINCED, NECTAR THICK LIQUIDS, WHICH SHE HAD BEEN TOLERATING WELL ALL DAY. ON DROPLET PRECAUTIONS FOR RSV. PLAN IS D/C BACK TO [facility] IN THE NEXT DAY OR TWO.
[2023-08-05 20:02] VITALS: BP 137/94
[2023-08-06 05:59] VITALS: BP 151/97
[2023-08-06 06:38] LABS: Bun/Creatinine Ratio 30.5 (12.0-20.0); Creatinine, Blood 0.62 mg/dL (0.40-1.00); Potassium, Blood 4.3 mmol/L (3.5-5.5)
--- NOTE | 2023-08-06 07:52 | NUR ---
SHIFT SUMMERY, PT RESTING IN BED, BUT DURRING TRANSFER OF NEW PT FROM [facility] TO BED. PT STARTED YELLING SAYING SHE WAS HUNGERY. WENT TO CHECK ON PT SOON POSIBLE AND PT SITTING ON EDGE OF BED READY TO FALL OUT STILL YELLING ABOUT SIMEON. TOLD PT TO NOT DO THAT SHE WOULD FALL. HELPED PT BACK TO BED. GOT PT SOME SNACKS. LATTER MEDICATED PT WITH HS MEDS AND PT HAS SEEMED TO SLEEP WELL DURING THE NIGHT. CALL LIGHT IN REACH.
[2023-08-06 08:44] VITALS: BP 141/92
[2023-08-06 15:22] VITALS: BP 137/94
--- NOTE | 2023-08-06 17:47 | NUR ---
SHIFT SUMMARY PT A&O TO SELF AND PERSON, REQUIRES REORIENTATION TO CURRENT SITUATION, PLACE, DATE/TIME, BUT EASILY ORIENTABLE, VSS, TOLERATING PO, VOIDING AND HAS PUREWICK IN PLACE, BED/CHAIR BOUND AT BASELINE, AND DENIED PAIN. CALL LIGHT WITHIN REACH AND PT ABLE TO MAKE NEEDS KNOWN.
[2023-08-06 20:04] VITALS: BP 142/89
[2023-08-07 04:45] VITALS: BP 140/79
--- NOTE | 2023-08-07 06:06 | NUR ---
0400 AGREE WITH SABINO MARTINEZ RN'S ASSESSMENT. WILL TAKE OVER FULL CARE OF PT AT THIS TIME. PT IS CURRENTLY LYING IN BED, EYES CLOSED, APPEARS TO BE RESTING. BREATHING IS EVEN, UNLABORED. NO APPARENT SIGNS OF DISTRESS. CALL LIGHT IS IN REACH.
--- NOTE | 2023-08-07 06:08 | NUR ---
0575 PT'S IV WAS ACCIDENTALLY PULLED OUT. STARTED NEW IV IN L HAND. PT TOLERATED WELL. ASSISTED OCCUPATIONAL HEALTH PHYSICIAN IN TURNING AND CHANGING THE PT. NO OTHER APPARENT SIGNS OF DISTRESS. PT DENIES NEED FOR ANYTHING ELSE AT THIS TIME. CALL LIGHT IS IN REACH. NO OTHER CHANGES THIS SHIFT.
--- NOTE | 2023-08-07 06:09 | NUR ---
PT IS AAO X 2-3, SOMEWHAT CHILDLIKE. PUREWICK IN PLACE.
[2023-08-07 08:24] VITALS: BP 175/128
--- NOTE | 2023-08-07 08:41 | NUR ---
PT'S BP 175/128 AT 0824 AND RECHECKED MANUALLY 160/118. NOTIFIED PROVIDER WHO STATED TO GIVE MORNING MEDS AMLODIPINE AND ZESTRIL ORDERD AND RECHECK IN AN HOUR.
[2023-08-07 09:37] VITALS: BP 138/87
--- NOTE | 2023-08-07 17:40 | NUR ---
SHIFT SUMMARY A&OX2-3 WITH CHILDLIKE THOUGHT PROCESSES. COOPERATIVE WITH CARE. DENIES ANY CP/PRESSURE, HEADACHE, OR DIZZINESS. SOB WITH SOME EXERTION IN BED AND WHEN LAYING FLAT. NO COMPLAINTS OF PAIN. CURRENTLY ON 2L O2 VIA NC WITH O2 SATS >94%. NO COUGH NOTED. SPEECH THERAPY EVALUATED PATIENT - THIN LIQUIDS, SOFT/BITE SIZED, AND MEDS WHOLE WITH APPLESAUCE. BLANCHABLE REDNESS WITH SOME CRACKED SKIN ON RIGHT INNER BUTTOCK. COVERED WITH BARRIER CREAM. PATIENT USING A PUREWICK. 1+ PITTING EDEMA TO BLE. LEGS ARE VERY TIGHT AND DO NOT ADDUCT EASILY. NO ACUTE CHANGES THIS SHIFT. CURRENTLY RESTING IN BED WATCHING TV. BED IN LOWEST POSITION. CALL LIGHT WITHIN REACH.
[2023-08-07 19:44] VITALS: BP 148/101
[2023-08-07 23:11] VITALS: BP 138/96
--- NOTE | 2023-08-08 03:37 | NUR ---
PT A&OX2-3 CHILDLIKE W HX CP, PT MAKES NEEDS KNOWN USES CALL JACKSON APPROPERIATELY, PT ON ISOLATION PRECAUTIONS USING O2 3LNC RSV/BRONCHITIS IV L HAND PATENT. PT DENIES CONSTIPATION INCONT WITH PURWIC IN PLACE. PT IS ON BEDREST TURN Q2HR PT SELF POSISONS FOR COMFORT.CALL JACSKON WITH IN REACH BED LOWERED WILL CONTINUE TO MONITOR. PT REPORTS HEADACHE PRN GIVEN, BLOOD PRESSURE REASSESSED AND PROVIDED PO FLUIDS.
[2023-08-08 05:14] VITALS: BP 163/107
[2023-08-08 05:37] LABS: BASOPHILS ABSOLUTE AUTO 0.01 K/mm3 (0.00-0.23); BASOPHILS PERCENT AUTO 0 % (0-2); EOSINOPHILS ABSOLUTE AUTO 0.01 K/mm3 (0.00-0.68); EOSINOPHILS PERCENT AUTO 0 % (0-6); Hematocrit 45.7 % (33.0-51.0); Hemoglobin 15.6 g/dL (11.5-16.0); IMMATURE GRAN ABSOLUTE AUTO 0.04 K/mm3 (0.00-0.10); IMMATURE GRAN PERCENT AUTO 0 % (0-1); LYMPHOCYTES ABSOLUTE AUTO 2.23 K/mm3 (0.84-5.20); LYMPHOCYTES PERCENT AUTO 21 % (21-46); MONOCYTES ABSOLUTE AUTO 0.97 K/mm3 (0.16-1.47); MONOCYTES PERCENT AUTO 9 % (4-13); Mean Corpuscular HGB 30.2 pg (26.0-34.0); Mean Corpuscular HGB Conc 34.1 g/dL (31.5-36.5); Mean Corpuscular Volume 88 fL (80-100); Mean Platelet Volume 9.1 fL (9.1-12.4); NEUTROPHILS ABSOLUTE AUTO 7.54 K/mm3 (1.96-9.15); NEUTROPHILS PERCENT AUTO 70 % (41-73); Platelet Count 284 K/mm3 (150-400); Red Blood Cell Count 5.17 M/mm3 (3.80-5.20)
[2023-08-08 05:55] LABS: Bun/Creatinine Ratio 33.4 (12.0-20.0); Calcium, Blood 9.1 mg/dL (8.5-10.1); Creatinine, Blood 0.6 mg/dL (0.40-1.00); Potassium, Blood 4.4 mmol/L (3.5-5.5)
--- NOTE | 2023-08-08 06:19 | NUR ---
PT HAS A SMALL SORE TO HER L.UPPER EAR AND BELIEVES IT WAS CAUSED BY "A [employer] IN [place]" AND "THE ISSUES SHE'S HAVING NOW ARE FROM [place] GROWING INSIDE HER RESULT". SHE THINKS SURGERY IS REQUIRED BUT THIS RN ENCOURAGED HER TO WEAR CPAP MASK INSTEAD TO HELP ALLEVIATE SOB/DYSPNEA POST EXERTION.
--- NOTE | 2023-08-08 06:51 | NUR ---
ASSUMED CARE OF PT AT 0400. NO CHANGES NOTED. AM MEDS AND PRN TYLENOL RECIEVED PER EMAR. VINCE AND REPORT TO DAY JENNIFER.
[2023-08-08] MEDS ORDERED: GUAI600T33 PO (14:45)
[2023-08-08] MEDS ORDERED: Flonase 0.05% N16 GM (14:45)
[2023-08-08] MEDS ORDERED: Pulmicort Fle180 MCG INH (14:46)
[2023-08-08] MEDS ORDERED: PRED20 PO (14:46)
[2023-08-08] MEDS ORDERED: IPRAT-ALBUT 0.5-3 ML INH (14:46)
[2023-08-08 15:35] VITALS: BP 133/62
--- NOTE | 2023-08-08 16:02 | NUR ---
SHIFT SUMMARY A&OX3, COOPERATIVE WITH CARE, [facility]. NO ACUTE EVENTS THIS SHIFT. DIMISHED LUNG SOUNDS THROUGHOUT. DENIES ANY CP/PRESSURE, HEADACHE, OR DIZZINESS. SOB WITH EXERTION AND LAYING ON BACK. CURRENTLY ON 2L VIA NC, SATTING IN THE MID-90'S. DENIED ANY PAIN T/O THE SHIFT. BLANKCHABLE REDNESS TO BILATERAL INNER BUTTOCKS. L INNER BUTTOCK HAS A SMALL CRACK IN SKIN, NO DRAINAGE. COVERED WITH BARRIER CREAM WITH EACH ATTENDS CHANGE. PUREWICK IN PLACE, DRAINING YELLOW URINE. HEELS FLOATED WITH HEEL PROTECTORS. PLAN FOR DISCHARGE BACK TO [facility] TOMORROW AFTER HOME 02 EVAL IS COMPLETED. PATIENT IS LAYING IN BED WATCHING TV. DENIES ANY NEEDS AT THIS TIME. BED IN LOWEST POSITION. CALL LIGHT WITHIN REACH.
[2023-08-08 19:59] VITALS: BP 128/93
--- NOTE | 2023-08-09 03:38 | NUR ---
PT ON BEREST HX CP DEPENDENT LIFT TRANSFER BASELINE WC, PT ON 2LNC DESTATED DURING THE NIGHT TO MID 80S, HOME O2 E[place] NEEDED IF DCING TODAY, PT HAD LARGE BM AT START OF THE SHIFT BARRIER CREAM APPLIED TO GLUTEAL FOLD AND DAMI AREA, POWDER IN ABDOMENIAL FOLD AREA REDDDEN, PT REPORTED HEADACHE DURING THE EVENING WAS GIVEN TYLENOL W/O RESULTS PROVIDER WAS CALLED ONE TIME DOSE TORADOL ORDERED PT REPORTED RELIEF, PT IS RESTING COMFORTABLELY, PT IS TURN Q2HR BUT REPOSITIONS SELF, CALL LIGHT WITHIN REACH, BED LOWERED, WILL CONTINUE TO MONITOR.
[2023-08-09 03:40] VITALS: BP 166/109
--- NOTE | 2023-08-09 06:08 | NUR ---
NO ACUTE CHANGES SINCE JENNIFER BERMAN LEFT LAST NOC AT APPX 0330. WILL CONTINUE TO MONITOR PT UNTIL AM SHIFT CHANGE.
[2023-08-09 07:39] VITALS: BP 160/100
--- NOTE | 2023-08-09 14:53 | NUR ---
PT DISCHARGED PTS DC ORDERS FAXED TO HER FACILITY BY CARE MANAGEMENT. THE PT WAS A/OX3. TP WAS TRANSFERED VIA WHEELCHAIR ACCOMPANIED BY [facility] TRANSPORTER. BELONGINGS RELEASED TO THE PT
== END 2023-08-09 13:10 | disposition home or self-care (01) | DRG 189 ==
LOC: ER 04:55 → MEDS 04:56 → ENPENDDIS 08-09 11:15 → MEDS 08-09 13:10
PROVIDERS: Emergency Medicine; Family Medicine; Hospitalist; ADMIT Family Medicine
DX: J96.01 Acute respiratory failure with hypoxia (principal); G80.1 Spastic diplegic cerebral palsy; J21.0 Acute bronchiolitis due to respiratory syncytial virus; I10 Essential (primary) hypertension; R60.0 Localized edema; I25.10 Atherosclerotic heart disease of native coronary artery without angina pectoris; E78.5 Hyperlipidemia, unspecified; H91.90 Unspecified hearing loss, unspecified ear; R13.10 Dysphagia, unspecified; F32.9 Major depressive disorder, single episode, unspecified; Z11.52 Encounter for screening for COVID-19
CPT/HCPCS: 0241U; 36415; 71045; 80048; 80053; 82803; 83605; 83735; 84100; 85025; 92526; 92610; 93005; 93010; 94640; 94644; 94664; 94760; 94761; 94762; 96372; 96374; 96376; 99285-25; A9270; G0378; J1650; J1885; J2405; J2920; J2930; J7512; J7626

== ENCOUNTER → 2023-08-16 | Outpatient (CLI) | payer MEDICARE, OTHER ==
[~2023-08-16] MED LIST changes: +ACET500 PO; +AMLO10 PO; +BISA10S PR; +CITALOPRAM HBR10 MG PO; +CLOBETASOL EMOL15 G1 TOP; +DOCU100 PO; +FURO20 PO; +Flonase 0.05% N16 GM; +GUAI600T33 PO; +IPRAT-ALBUT 0.5-3 ML INH; +LISI5 PO; +MIRALAX17 GM PO; +Milk of Magnesia PO; +PRED20 PO; +Pulmicort Fle180 MCG INH
[2023-08-16 15:50] LABS: Appearance, Urine Clear (Clear); Bilirubin, Urine Neg (Neg); Blood, Urine Neg (Neg); Glucose Qualitative, Urine Neg (Neg); Ketones, Urine Neg (Neg); Leukocyte Esterase, Urine Neg (Neg); Nitrite, Urine Pos (Neg); Protein, Urine Neg (Neg); Urobilinogen, Urine NORM (Normal)
[2023-08-16 15:55] LABS: Color, Urine Pale Yellow (P-Yellow)
[2023-08-16 15:57] LABS: Bacteria Many /hpf; Mucus Light (0-Heavy); Red Blood Cells, Urine 0-2 /hpf (0-2); Squamous Epithelial Cells Few /hpf (Few); White Blood Cells, Urine 0-2 /hpf (0-5)
== END ==
LOC: LAB 10:15 → LAB SHORT 10:15
PROVIDERS: Internal Medicine
DX: N39.0 Urinary tract infection, site not specified (principal)
CPT/HCPCS: 81001; 87077; 87086; 87186

== ENCOUNTER 2023-11-13 13:40 | Emergency (ER) | payer MEDICARE, OTHER ==
[~2023-11-13] VITALS: Ht 172.7 cm; Wt 99.8 kg
[2023-11-13] MEDS ORDERED: Mupirocin 2% Ointment 22 GM TOP ONE (16:20)
[2023-11-13] MEDS ORDERED: Diphth,Pertuss(Acell),Tet Vac 0.5 ML VIAL IM ONE (16:20)
[2023-11-13 17:38] VITALS: BP 163/99
[2023-11-13] MEDS ORDERED: MUPIROCIN15 GM TOP (18:35)
== END 2023-11-13 18:16 | disposition home or self-care (01) ==
LOC: ER 13:40
DX: T24.211A Burn of second degree of right thigh, initial encounter (principal); T24.212A Burn of second degree of left thigh, initial encounter; T31.0 Burns involving less than 10% of body surface; G80.9 Cerebral palsy, unspecified; X10.0XXA Contact with hot drinks, initial encounter; Z79.899 Other long term (current) drug therapy; Z79.52 Long term (current) use of systemic steroids
CPT/HCPCS: 90471; 90715; 99283-25; A9270

== ENCOUNTER 2023-11-15 08:03 | Emergency (ER) | payer MEDICARE, OTHER ==
[~2023-11-15] VITALS: Ht 162.6 cm; Wt 81.7 kg
[~2023-11-15 08:03] MED LIST changes: +MUPIROCIN15 GM TOP
[2023-11-15] MEDS ORDERED: CEPH500 PO (09:16)
[2023-11-15] MEDS ORDERED: Bactrim Ds Tab1 EACH PO (09:16)
[2023-11-15] MEDS ORDERED: Mupirocin 2% Ointment 22 GM TOP ONE (13:15)
[2023-11-15 13:19] VITALS: BP 138/70
== END 2023-11-15 13:22 | disposition home or self-care (01) ==
LOC: ER 08:03
DX: S70.321D Blister (nonthermal), right thigh, subsequent encounter (principal); L03.115 Cellulitis of right lower limb; X10.0XXD Contact with hot drinks, subsequent encounter; Z79.899 Other long term (current) drug therapy; Z79.52 Long term (current) use of systemic steroids
CPT/HCPCS: 99283; A9270

== ENCOUNTER 2024-05-10 10:25 | Emergency (ER) | payer MEDICARE, OTHER ==
[~2024-05-10] VITALS: Ht 170.2 cm; Wt 90.7 kg
[~2024-05-10 10:25] MED LIST changes: +Bactrim Ds Tab1 EACH PO
[2024-05-10 11:30] LABS: BASOPHILS ABSOLUTE AUTO 0.05 K/mm3 (0.00-0.23); BASOPHILS PERCENT AUTO 1 % (0-2); EOSINOPHILS ABSOLUTE AUTO 0.11 K/mm3 (0.00-0.68); EOSINOPHILS PERCENT AUTO 2 % (0-6); Hemoglobin 16.4 g/dL (11.5-16.0); IMMATURE GRAN ABSOLUTE AUTO 0.01 K/mm3 (0.00-0.10); IMMATURE GRAN PERCENT AUTO 0 % (0-1); LYMPHOCYTES ABSOLUTE AUTO 1.58 K/mm3 (0.84-5.20); LYMPHOCYTES PERCENT AUTO 28 % (21-46); MONOCYTES ABSOLUTE AUTO 0.68 K/mm3 (0.16-1.47); MONOCYTES PERCENT AUTO 12 % (4-13); Mean Corpuscular HGB 30.8 pg (26.0-34.0); Mean Corpuscular HGB Conc 35.7 g/dL (31.5-36.5); Mean Corpuscular Volume 86 fL (80-100); Mean Platelet Volume 9.7 fL (9.1-12.4); NEUTROPHILS ABSOLUTE AUTO 3.25 K/mm3 (1.96-9.15); NEUTROPHILS PERCENT AUTO 57 % (41-73); Platelet Count 258 K/mm3 (150-400); RDW Coefficient Variation 12.8 % (11.7-14.2); RDW Standard Deviation 39.8 fL (35.1-46.3); Red Blood Cell Count 5.33 M/mm3 (3.80-5.20); White Blood Cell Count 5.68 K/mm3 (4.00-11.30)
[2024-05-10 11:42] LABS: Source, Urine Straight Cath
[2024-05-10 11:47] LABS: Appearance, Urine Hazy (Clear); Bilirubin, Urine Neg (Neg); Blood, Urine Neg (Neg); Color, Urine Yellow (P-Yellow); Glucose Qualitative, Urine Neg (Neg); Ketones, Urine Neg (Neg); Leukocyte Esterase, Urine Neg (Neg); Nitrite, Urine Pos (Neg); Protein, Urine Neg (Neg); Specific Gravity, Urine 1.015 (1.003-1.022); Urobilinogen, Urine NORM (Normal)
[2024-05-10 11:48] LABS: Albumin, Blood 3.7 g/dL (3.4-5.0); Bilirubin, Total 0.5 mg/dL (0.1-1.0); Bun/Creatinine Ratio 26.4 (12.0-20.0); Calcium, Blood 9.1 mg/dL (8.5-10.1); Creatinine, Blood 0.72 mg/dL (0.40-1.00); Globulin, Blood 3.6 g/dL (2.2-4.0); Potassium, Blood 4.3 mmol/L (3.5-5.5); Total Protein, Blood 7.3 g/dL (6.4-8.2)
[2024-05-10 11:56] LABS: Bacteria Many /hpf; Red Blood Cells, Urine 0-2 /hpf (0-2); Squamous Epithelial Cells Mod /hpf (Few); White Blood Cells, Urine 0-2 /hpf (0-5)
[2024-05-10 11:57] LABS: Mucus Light (0-Heavy)
[2024-05-10] MEDS ORDERED: [UNRECOGNIZED DRUG - CODE] PO (13:55)
[2024-05-10 15:20] VITALS: BP 174/104
== END 2024-05-10 15:20 | disposition home or self-care (01) ==
LOC: ER 10:25
PROVIDERS: Student in an Organized Health Care Education/Training Program
DX: M25.512 Pain in left shoulder (principal); N39.0 Urinary tract infection, site not specified; R94.31 Abnormal electrocardiogram [ECG] [EKG]; Z79.51 Long term (current) use of inhaled steroids; Z79.52 Long term (current) use of systemic steroids; Z79.899 Other long term (current) drug therapy
CPT/HCPCS: 51701; 70450; 71046; 80053; 81001; 83880; 84484; 85025; 87077; 87086; 87186; 93005; 93010; 99285-25

== ENCOUNTER 2024-05-22 10:50 | Emergency (ER) | payer MEDICARE, OTHER ==
[~2024-05-22] VITALS: Ht 170.2 cm; Wt 90.7 kg
[~2024-05-22 10:50] MED LIST changes: +[UNRECOGNIZED DRUG - CODE] PO
[2024-05-22] MEDS ORDERED: HydrALAZINE HCl 20 MG / ML 1ML Vial IV ONE (11:25)
[2024-05-22] MEDS ORDERED: Meclizine HCl 25 MG Tab PO ONE (11:25)
[2024-05-22 11:27] LABS: BASOPHILS ABSOLUTE AUTO 0.05 K/mm3 (0.00-0.23); BASOPHILS PERCENT AUTO 1 % (0-2); EOSINOPHILS ABSOLUTE AUTO 0.07 K/mm3 (0.00-0.68); EOSINOPHILS PERCENT AUTO 1 % (0-6); Hematocrit 45.5 % (33.0-51.0); Hemoglobin 16.4 g/dL (11.5-16.0); IMMATURE GRAN ABSOLUTE AUTO 0.01 K/mm3 (0.00-0.10); IMMATURE GRAN PERCENT AUTO 0 % (0-1); LYMPHOCYTES ABSOLUTE AUTO 1.51 K/mm3 (0.84-5.20); LYMPHOCYTES PERCENT AUTO 27 % (21-46); MONOCYTES ABSOLUTE AUTO 0.51 K/mm3 (0.16-1.47); MONOCYTES PERCENT AUTO 9 % (4-13); Mean Corpuscular HGB 31.5 pg (26.0-34.0); Mean Corpuscular Volume 87 fL (80-100); Mean Platelet Volume 9.5 fL (9.1-12.4); NEUTROPHILS ABSOLUTE AUTO 3.53 K/mm3 (1.96-9.15); NEUTROPHILS PERCENT AUTO 62 % (41-73); Platelet Count 262 K/mm3 (150-400); RDW Coefficient Variation 12.7 % (11.7-14.2); RDW Standard Deviation 40.3 fL (35.1-46.3); Red Blood Cell Count 5.21 M/mm3 (3.80-5.20); White Blood Cell Count 5.68 K/mm3 (4.00-11.30)
[2024-05-22 12:02] LABS: Bun/Creatinine Ratio 31.2 (12.0-20.0); Calcium, Blood 9.3 mg/dL (8.5-10.1); Creatinine, Blood 0.64 mg/dL (0.40-1.00); Magnesium, Blood 2.1 mg/dL (1.6-2.4); Potassium, Blood 4.5 mmol/L (3.5-5.5); Thyroid Stimulating Hormone 2.28 uIU/mL (0.360-4.800)
[2024-05-22] MEDS ORDERED: AmLODIPine Besylate 5 MG Tab PO ONE (14:45)
[2024-05-22] MEDS ORDERED: AMLO10 PO ×2 (15:04→16:23)
[2024-05-22] MEDS ORDERED: MECL25 PO ×2 (15:04→16:23)
[2024-05-22 15:15] VITALS: BP 167/102
== END 2024-05-22 16:00 | disposition home or self-care (01) ==
LOC: ER 10:50
PROVIDERS: Student in an Organized Health Care Education/Training Program
DX: R42 Dizziness and giddiness (principal); I10 Essential (primary) hypertension; R07.9 Chest pain, unspecified; Z79.899 Other long term (current) drug therapy
CPT/HCPCS: 71045; 80048; 83735; 84443; 84484; 85025; 93005; 93010; 96374; 99285-25; A9270; J0360

== ENCOUNTER → 2024-06-03 | Outpatient (CLI) | payer MEDICARE, OTHER ==
[~2024-06-03] MED LIST changes: +MECL25 PO
== END ==
LOC: LAB 13:30 → LAB SHORT 13:30
DX: R30.0 Dysuria (principal)
CPT/HCPCS: 87077; 87086; 87186